=== PATIENT | female | born 1960 | race Caucasian/White ===

== ENCOUNTER 2019-01-14 16:43 | Emergency (ER) | payer OTHER ==
[~2019-01-14] VITALS: Ht 152.4 cm; Wt 86.2 kg
== END 2019-01-14 19:42 | disposition home or self-care (01) ==
LOC: ER 16:43
DX: S01.02XA Laceration with foreign body of scalp, initial encounter (principal); W45.8XXA Other foreign body or object entering through skin, initial encounter; Y93.89 Activity, other specified; Y92.89 Other specified places as the place of occurrence of the external cause; Y99.8 Other external cause status

== ENCOUNTER 2019-01-22 08:40 | Emergency (ER) | payer OTHER ==
[~2019-01-22] VITALS: Ht 152.4 cm; Wt 90.7 kg
[2019-01-22] MEDS ORDERED: LOSARTAN POTASS50 MG (08:54)
== END 2019-01-23 03:42 | disposition home or self-care (01) ==
LOC: ER 08:40
DX: I16.0 Hypertensive urgency (principal); I10 Essential (primary) hypertension; R07.89 Other chest pain; Z48.02 Encounter for removal of sutures

== ENCOUNTER 2022-03-07 08:00 | Outpatient (CLI) | payer OTHER ==
[~2022-03-07 08:00] MED LIST: LOSARTAN POTASS50 MG
== END 2022-03-07 08:30 | disposition home or self-care (01) ==
LOC: PPH VACUNA 08:00
PROVIDERS: ATTEND Emergency Medicine Pediatric Emergency Medicine
DX: Z23 Encounter for immunization (principal); Z71.85 Encounter for immunization safety counseling

== ENCOUNTER 2022-07-15 14:40 | Outpatient (CLI) | payer OTHER | END 2022-07-15 14:50 | disposition home or self-care (01) | LOC: PPH VACUNA 14:40 | PROVIDERS: ATTEND Emergency Medicine Pediatric Emergency Medicine | DX: Z23 Encounter for immunization (principal) ==